=== PATIENT | male | born 1955 | race African-American/Black ===

== ENCOUNTER 2021-05-19 18:14 | Emergency (ER) | payer SELFPAY ==
[~2021-05-19] VITALS: Ht 185.4 cm; Wt 127.0 kg
[2021-05-19 18:16] VITALS: BP 127/88
== END 2021-05-19 21:25 | disposition home or self-care (01) ==
LOC: ER 18:14
DX: B34.9 Viral infection, unspecified (principal); I25.10 Atherosclerotic heart disease of native coronary artery without angina pectoris; I25.2 Old myocardial infarction; I11.9 Hypertensive heart disease without heart failure; Z20.822 Contact with and (suspected) exposure to COVID-19; Z98.890 Other specified postprocedural states
CPT/HCPCS: 87426; 99283